=== PATIENT | male | born 1985 | race American Indian/Alaskan Native ===

== ENCOUNTER 2018-05-01 10:15 | Emergency (ER) | payer SELFPAY ==
[2018-05-01] MEDS ORDERED: DELTASONE PO ONE (10:36)
[2018-05-01] MEDS ORDERED: CATAPRES PO ONE (10:36)
[2018-05-01] MEDS ORDERED: TORADOL IM ONE (10:36)
[2018-05-01] MEDS ORDERED: FLEXERIL PO ONE (10:36)
--- NOTE | 2018-05-01 10:38 | Emergency Department Report ---
ED Back Pain/Injury HPI - General Chief Complaint: High BP Stated Complaint: LOWER BACK PAIN/HBP Time Seen by Provider: 05/01/18 10:33 Source: patient Limitations: No Limitations - History of Present Illness Initial Comments: Patient is a 32-year-old -[place]unis[place] male who presented to an urgent care today complaining of low back pain after picking something up at work. He took his blood pressure and found to be 200/112 so they sent him to the emergency room. Patient has no chest pain or shortness of breath or swelling of the extremities or any other complaint other than his low back pain. He states the pain started after he lifted something at work. He states that he used to take blood pressure medicines but has not in some time. He is on no home medications. Has no allergies. He has no major medical problems other than the blood pressure. Complaint: back injury - Related Data Previous Rx's Medication Instructions Recorded Last Taken Type Cyclobenzaprine [Flexeril] 10 mg PO TID PRN #10 tablet 05/01/18 Unknown Rx Naproxen [Naprosyn] 500 mg PO BID PRN #20 tablet 05/01/18 Unknown Rx RX: predniSONE [Deltasone] 20 mg PO DAILY #5 tablet 05/01/18 Unknown Rx amLODIPine [Norvasc] 5 mg PO DAILY #30 tab 05/01/18 Unknown Rx Allergies Allergy/AdvReac Type Severity Reaction Status Date / Time No Known Allergies Allergy Unverified 05/01/18 10:30 ED Review of Systems ROS: Stated complaint: LOWER BACK PAIN/HBP Other details as noted in HPI Comment: All other systems reviewed and negative Constitutional: denies: chills, fever Eyes: denies: eye pain ENT: denies: ear pain Respiratory: denies: cough, orthopnea, shortness of breath, SOB with exertion, SOB at rest Cardiovascular: denies: chest pain, palpitations Endocrine: denies: excessive sweating Gastrointestinal: denies: abdominal pain, nausea, vomiting Genitourinary: denies: urgency, dysuria, frequency, hematuria, discharge Musculoskeletal: as per HPI, back pain, other Skin: denies: rash, lesions Neurological: denies: headache, weakness (after lifting at work) Psychiatric: denies: anxiety, depression Hematological/Lymphatic: denies: easy bleeding ED Past Medical Hx - Past Medical History Medical history: hypertension Surgical history: no surgical history Psychiatric history: no pertinent history Family history: no significant family history - Social History Smoking Status: Never Smoker Alcohol use: rarely Drug use: none ED Back Pain Physical Exam - Exam General: Vital signs noted. No distress. Alert and acting appropriately. A/O X4 BERRY NO FOCAL NEURO DEF S1S2 NO EDEMA LUNGS CTA ABD SNT NO CVA TENDERNESS NO POINT TENDERNESS OVER SPINE L PARASPINAL MUSCLE SPASM NOTED AMBULATING WITHOUT DIFFICULTY NO INCONTINENCE OR SADDLE ANESTHESIA Back/Abdomen: Yes Straight Leg Raise Pain (right), No Abdominal Tenderness, No Perithoracic Tenderness, No Perilumbar Tenderness, No Sacroiliac Tenderness, No Flank Tenderness Neuro: Yes Normal Sensation, Yes Normal DTR's, Yes Normal Gait, No Motor Weakness ED Course Vital Signs 05/01/18 10:27 Temperature 98.6 F Pulse Rate 74 Respiratory 18 Rate Blood Pressure 192/123 O2 Sat by Pulse 98 Oximetry ED Medical Decision Making - Radiology Data Radiology results: report reviewed, image reviewed - Medical Decision Making XRAY NOTED MEDICATED FOR PAIN AND BP EDUCATED ON IMPORTANCE OF FOLLOWING UP FOR HIS BP STARTED ON NORVASC DAILY EDUCATED ON BP MANAGEMENT DC HOME WITH DC PLAN OF CARE. - Differential Diagnosis RO DISC HERNIATION Critical care attestation.: If time is entered above; I have spent that time in minutes in the direct care of this critically ill patient, excluding procedure time. ED Disposition Clinical Impression: Lumbar strain, Hypertension, Medical non-compliance Disposition: DC-01 TO HOME OR SELFCARE Is pt being admited?: No Does the pt Need Aspirin: No Condition: Stable Instructions: Muscle Strain (ED), Hypertension (ED) Additional Instructions: MEDS ORDERED TODAY FOLLOW UP PCP REFERRAL BELOW REST AND WARM COMPRESSES WILL HELP WITH BACK HYDRATE WELL WITH WATER YOU WILL NEED TO SEE THE PCP FOR YOUR ELEVATED BLOOD PRESSURE - REFERRAL BELOW IN THE MEAN TIME TAKE MED YOU WERE GIVEN TODAY AND FOLLOW A LOW SALT DIET; AVOID FRIED FOOD AND FAST FOOD EXERCISE DAILY Prescriptions: amLODIPine [Norvasc] 5 mg PO DAILY #30 tab Cyclobenzaprine [Flexeril] 10 mg PO TID PRN #10 tablet PRN Reason: Muscle Spasm Naproxen [Naprosyn] 500 mg PO BID PRN #20 tablet PRN Reason: Pain RX: predniSONE [Deltasone] 20 mg PO DAILY #5 tablet Referrals: LIGIA CLIFFORD MD [Primary Care Provider] - 3-5 Days [facility] [Outside] - 3-5 Days Time of Disposition: 11:30
--- NOTE | 2018-05-01 11:19 | XRay Report ---
LUMBAR SPINE RADIOGRAPHS: INDICATION: Pain after lifting. COMPARISON: None similar at this institution. FINDINGS: AP and lateral lumbar spine radiographs demonstrate preserved vertebral body stature, alignment and disc heights. Nonobstructive bowel gas pattern. Normal bilateral SI joints. Cardiomegaly not excluded at the imaged lung bases. CONCLUSION: No acute lumbar radiographic abnormality. Cardiomegaly not excluded. Please correlate. Thank you for the opportunity to participate in this patient's care.
[2018-05-01 11:25] VITALS: BP 173/109
== END 2018-05-01 11:44 | disposition home or self-care (01) ==
LOC: ED 10:15
DX: S39.012A Strain of muscle, fascia and tendon of lower back, initial encounter (principal); X50.1XXA Overexertion from prolonged static or awkward postures, initial encounter; Y93.89 Activity, other specified; Y92.89 Other specified places as the place of occurrence of the external cause; Y99.8 Other external cause status
CPT/HCPCS: 72100; 96372; 99283; J1885; J7512

== ENCOUNTER 2021-02-16 11:52 | Emergency (ER) | payer SELFPAY ==
[2021-02-16] MEDS ORDERED: FUROSEMIDE 40 MG/4 ML INJ IV ONE (12:34)
--- NOTE | 2021-02-16 12:38 | Emergency Department Report ---
HPI - General Chief Complaint: High BP Time Seen by Provider: 02/16/21 12:08 - HPI HPI: This is a 35-year-old -Cro[place] male presents to the emergency department, sent in by his daycare assistant Dr. Fuller [facility], for evaluation of uncontrolled and elevated blood pressure and suspicion for an exacerbation of CHF. The patient went into follow-up with Dr. Fuller secondary to some recent shortness of breath, as well as swelling in the legs and abdomen. Patient does have a history of CHF for which he is on carvedilol, Entresto, and Lasix. The patient admits that he is only sporadically compliant with the Entresto as he can only take it if he gets samples from his daycare assistant, otherwise he cannot afford it, and therefore he has not been taking it as prescribed. Patient was found to have a blood pressure of 220/180 in the office. He was given clonidine 0.2 mg, it was repeated and went down to 200/130, and the order was given to tra nsfer the patient to the emergency department. 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 ED Past Medical Hx - Past Medical History Previous Medical History?: Yes Hx Hypertension: Yes - Surgical History Past Surgical History?: No - Social History Smoking Status: Never Smoker - Medications Home Medications: Home Medications Medication Instructions Recorded Confirmed Last Taken Type Cyclobenzaprine [Flexeril] 10 mg PO TID PRN #10 tablet 05/01/18 Unknown Rx Naproxen [Naprosyn] 500 mg PO BID PRN #20 tablet 05/01/18 Unknown Rx amLODIPine [Norvasc] 5 mg PO DAILY #30 tab 05/01/18 Unknown Rx predniSONE [Deltasone] 20 mg PO DAILY #5 tablet 05/01/18 Unknown Rx NIFEdipine XL [Procardia Xl] 90 mg PO QDAY #30 tablet 02/16/21 Unknown Rx ED Review of Systems ROS: Stated complaint: ELEVATED BLOOD PRESSURE Other details as noted in HPI Comment: All other systems reviewed and negative Constitutional: denies: chills, fever Eyes: denies: eye pain, vision change ENT: denies: ear pain, throat pain Respiratory: orthopnea, shortness of breath. denies: cough Cardiovascular: edema. denies: chest pain Gastrointestinal: denies: abdominal pain, vomiting Genitourinary: denies: dysuria, discharge Musculoskeletal: denies: back pain, joint swelling Skin: denies: rash, lesions Neurological: denies: headache, weakness Physical Exam - Physical Exam Vital Signs: Vital Signs 02/16/21 02/16/21 11:55 12:32 Temperature 98.1 F Pulse Rate 90 Respiratory 16 Rate Blood Pressure 198/140 [Left] O2 Sat by Pulse 96 96 Oximetry Physical Exam: GENERAL: The patient is well-developed well-nourished. HENT: Normocephalic. Atraumatic. Patient has moist mucous membranes. EYES: Extraocular motions are intact. NECK: Supple. Trachea is midline. CHEST/LUNGS: Slightly coarse breath sounds. No tachypnea or accessory muscle use. There is no respiratory distress noted. HEART/CARDIOVASCULAR: Regular. There is no tachycardia. There is no murmur. ABDOMEN: Abdomen is soft, nontender. Patient has normal bowel sounds. There is no abdominal distention. SKIN: Skin is warm and dry. 1+ pitting edema to the bilateral lower extremities. NEURO: The patient is awake, alert, and oriented. The patient is cooperative. The patient has no focal neurologic deficits. Normal speech. MUSCULOSKELETAL: There is no tenderness or deformity. There is no limitation range of motion. ED Course Vital Signs 02/16/21 02/16/21 11:55 12:32 Temperature 98.1 F Pulse Rate 90 Respiratory 16 Rate Blood Pressure 198/140 [Left] O2 Sat by Pulse 96 96 Oximetry - Consultations Consultation #1: 02/16/21 15:[address] Martinez, daycare assistant on-call for [facility]. The patient had seen Dr. Fuller in the office but Dr. Martinez saw the patient walking around in the [place] [facility] office as well. He listened to the patient's ED course including lab and imaging results. He did not feel that the patient necessarily required admission to the hospital. He has recommended the patient be placed on nifedipine XL 90 mg, given an extra dose of IV Lasix in the emergency department, and the patient can follow-up outpatient in their office. ED Medical Decision Making - Lab Data Result diagrams: 02/16/21 12:39 02/16/21 12:39 Lab Results 02/16/21 02/16/21 02/16/21 Range/Units 12:39 12:39 12:39 WBC 6.5 (4.5-11.0) K/mm3 RBC 5.01 (3.65-5.03) M/mm3 Hgb 12.0 (11.8-15.2) gm/dl Hct 38.0 (35.5-45.6) % MCV 76 L (84-94) fl MCH 24 L (28-32) pg MCHC 32 (32-34) % RDW 16.1 H (13.2-15.2) % Plt Count 305 (140-440) K/mm3 Lymph % (Auto) 24.7 (13.4-35.0) % [place] % (Auto) 7.4 H (0.0-7.3) % Eos % (Auto) 1.8 (0.0-4.3) % Baso % (Auto) 0.8 (0.0-1.8) % Lymph # (Auto) 1.6 (1.2-5.4) K/mm3 Charlotte # (Auto) 0.5 (0.0-0.8) K/mm3 Eos # (Auto) 0.1 (0.0-0.4) K/mm3 Baso # (Auto) 0.0 (0.0-0.1) K/mm3 Seg Neutrophils % 65.3 (40.0-70.0) % Seg Neutrophils # 4.2 (1.8-7.7) K/mm3 PT 13.8 (12.2-14.9) Sec. INR 0.96 (0.87-1.13) APTT 29.3 (24.2-36.6) Sec. Sodium 138 (137-145) mmol/L Potassium 3.4 L (3.6-5.0) mmol/L Chloride 101.3 (98-107) mmol/L Carbon Dioxide 24 (22-30) mmol/L Anion Gap 16 mmol/L BUN 15 (9-20) mg/dL Creatinine 1.2 (0.8-1.3) mg/dL Estimated GFR > 60 ml/min BUN/Creatinine Ratio 13 % Glucose 110 H (75-100) mg/dL Calcium 8.9 (8.4-10.2) mg/dL Total Bilirubin 0.80 (0.1-1.2) mg/dL AST 26 (5-40) units/L ALT 34 (7-56) units/L Alkaline Phosphatase 67 (35-129) units/L Troponin T < 0.010 (0.00-0.029) ng/mL NT-Pro-B Natriuret Pep 6298 H (0-450) pg/mL Total Protein 7.1 (6.3-8.2) g/dL Albumin 4.0 (3.9-5) g/dL Albumin/Globulin Ratio 1.3 % - EKG Data -: EKG Interpreted by Me EKG shows normal: sinus rhythm, axis, intervals (Prolonged NJ interval), QRS c omplexes (Nonspecific IVCD), ST-T waves Rate: normal - EKG Data When compared to previous EKG there are: previous EKG unavailable Interpretation: other (Sinus rhythm at 62 bpm, normal axis, prolonged NJ interval, nonspecific IVCD. No ST elevation OR) - Radiology Data Radiology results: image reviewed interpreted by me: Chest x-ray shows some pulmonary vascular congestion. No obvious pleural effusions. No pneumothorax or pneumonia. No widened mediastinum. - Medical Decision Making This patient initially presented to the emergency department from [place] [facility] with a complaint of very elevated blood pressure and possibly a CHF exacerbation. Patient does complain of some swelling to the bilateral lower extremities and around the abdomen. He has some occasional shortness of breath but denies any significant orthopnea or respiratory distress. On examination heart and lungs are normal to auscultation and he does not appear in any respiratory or acute distress. EKG does not show any morphology consistent with ST elevation myocardial infarction. Chest x-ray may show some mild pulmonary vascular congestion but no overt fluid overload. No pneumonia or pneumothorax. No widened mediastinum. Patient's labs have been mostly unremarkable including CBC, metabolic panel but he does have an elevated proBNP of about 6000. The patient did present with a very elevated blood pressure. He was given a dose of Lasix for diuresis, IV analgesia and a dose of IV antihypertensive medication. His blood pressure has come down to a more reasonable level. The patient has diuresed a significant amount and is feeling improved. As per the consultation section, I spoke with one of the [place] [facility] daycare assistant who says that the patient can be discharged home if he is feeling up to it. I spoke to the patient and gave him the options of an observational admission for continued diuresis and medication reconciliation/change, or discharge home with a new antihypertensive medication and outpatient follow-up with [facility]. After discussing all of the lab and imaging results and the possibilities, the patient has decided, through shared decision-making, that he would like to be discharged home and started on the nifedipine. Critical Care Time: No Critical care attestation.: If time is entered above; I have spent that time in minutes in the direct care of this critically ill patient, excluding procedure time. ED Disposition Clinical Impression: Hypertension Qualifiers: Hypertension type: primary hypertension Qualified Code(s): I10 - Essential (primary) hypertension CHF (congestive heart failure) Qualifiers: Heart failure type: unspecified Heart failure chronicity: unspecified Qualified Code(s): I50.9 - Heart failure, unspecified Disposition: HOME / SELF CARE / HOMELESS Is pt being admited?: No Condition: Stable Instructions: Heart Failure, Self Care, Hypertension, Adult, Heart Failure Eating Plan, Hypertension (ED) Additional Instructions: Please follow-up with your daycare assistant in the next few days for medication reconciliation and changes. I am starting you on a blood pressure medication called nifedipine XL that is taken once per day. Try to stay away from foods that are high in salt and caffeinated products. Please try to avoid any excessive fluid intake. Return to the emergency department with any worsening of your symptoms, new or concerning symptoms not addressed during this current emergency department visit, or with any acute distress. Prescriptions: NIFEdipine XL [Procardia Xl] 90 mg PO QDAY #30 tablet Referrals: PRIMARY MD BETHANIE [Primary Care Provider] - 2-3 Days JC FULLER MD [Staff Physician] - 2-3 Days Time of Disposition: 15:58
[2021-02-16 12:51] LABS: Basophils % (Auto) 0.8 % (0.0-1.8); Eosinophils # (Auto) 0.1 K/mm3 (0.0-0.4); Eosinophils % (Auto) 1.8 % (0.0-4.3); Lymphocytes # (Auto) 1.6 K/mm3 (1.2-5.4); Lymphocytes % (Auto) 24.7 % (13.4-35.0); Mean Corpuscular HGB Conc 32 % (32-34); Mean Corpuscular Volume 76 fl (84-94); Monocytes # (Auto) 0.5 K/mm3 (0.0-0.8); Monocytes % (Auto) 7.4 % (0.0-7.3); Platelet Count 305 K/mm3 (140-440); Red Blood Count 5.01 M/mm3 (3.65-5.03); Red Cell Distribution Width 16.1 % (13.2-15.2)
[2021-02-16 13:09] LABS: INR 0.96 (0.87-1.13)
[2021-02-16 13:10] LABS: Partial Thromboplastin Time 29.3 Sec. (24.2-36.6)
--- NOTE | 2021-02-16 13:22 | XRay Report ---
CHEST 1 VIEW 02/16/2021 12:53 PM INDICATION / CLINICAL INFORMATION: SOB. COMPARISON: None available. FINDINGS: SUPPORT DEVICES: None. HEART / MEDIASTINUM: Heart is moderately enlarged with pulmonary venous hypertension. LUNGS / PLEURA: No significant pulmonary or pleural abnormality. No pneumothorax. ADDITIONAL FINDINGS: No significant additional findings. IMPRESSION: 1. Cardiomegaly and pulmonary venous hypertension but no acute pulmonary or pleural findings. Signer Name: Jerrod Cedeno MD Signed: 02/16/2021 1:18 PM Workstation Name: [id number]
[2021-02-16] MEDS ORDERED: MORPHINE 4 MG/1 ML INJ IV ONE (13:59)
[2021-02-16 14:35] LABS: Alanine Aminotransferase 34 units/L (7-56); BUN/Creatinine Ratio 13; Blood Urea Nitrogen 15 mg/dL (9-20); Calcium 8.9 mg/dL (8.4-10.2); Hemolysis Index 7
[2021-02-16] MEDS ORDERED: POTASSIUM CHLORIDE ER 20 MEQ TAB PO ONE (14:45)
[2021-02-16] MEDS ORDERED: FUROSEMIDE 20 MG/2 ML INJ IV ONE (15:18)
[2021-02-16 16:28] VITALS: BP 169/114
--- NOTE | 2021-02-17 09:14 | Electrocardiograph Report ---
[facility] Test Date: 2021-02-16 Test Time: 14:37:22 Pat Name: JASIEL IRAHETA Department: Room: Gender: M Hr Leader: CAILIN : 1985 Requested By: BOBBY HANKINS Order Number: [id number] Reading MD: Dajuan Nails Measurements Intervals Mchenry Rate: 62 P: 45 CO: 224 QRS: 38 QRSD: 124 T: 9 QT: 482 QTc: 489 Interpretive Statements Sinus rhythm Prolonged CO interval Left atrial enlargement Nonspecific intraventricular conduction delay No previous ECG available for comparison Electronically Signed On 02-17-2021 9:13:52 EDT by Dajuan Nails
== END 2021-02-16 16:30 | disposition home or self-care (01) ==
LOC: ED 11:52
DX: I10 Essential (primary) hypertension (principal); I50.9 Heart failure, unspecified
CPT/HCPCS: 36415; 71045; 80053; 83880; 84484; 85025; 85610; 85730; 93005; 96374; 96375; 96376; 99284; J1940; J2270

== ENCOUNTER 2021-05-25 10:58 | Emergency (ER) | payer SELFPAY ==
--- NOTE | 2021-05-25 13:05 | Event Note ---
ED Screening Note ED Screening Note: co abd pain and back pain he thinks he is constipated he has no reason to be constipated- no narcs/ meds cant like flat due to sob bp elevated on 3 bp meds- coreg/lasix/and 3rd he cant recall allergy per EMR to lisinopril known to [facility] This initial assessment/diagnostic orders/clinical plan/treatment(s) is/are subject to change based on patients health status, clinical progression and re- assessment by fellow clinical providers in the ED. Further treatment and workup at subsequent clinical providers discretion. Patient/guardian urged not to elope from the ED as their condition may be serious if not clinically assessed and managed. Initial orders include: ro htn urg/emerg; ao disease
--- NOTE | 2021-05-25 13:29 | XRay Report ---
XR chest routine 2V INDICATION / CLINICAL INFORMATION: Chest Pain. COMPARISON: 02/16/2021 FINDINGS: SUPPORT DEVICES: None. HEART /PULMONARY VASCULATURE: Cardiomegaly with pulmonary vasculature congestion LUNGS / PLEURA: Mild increased interstitial opacities likely reflect edema. There is no focal airspac e consolidation. No sizable pleural effusion. No pneumothorax. ADDITIONAL FINDINGS: No significant additional findings. IMPRESSION: Findings most consistent with CHF/volume overload with mild interstitial edema. Signer Name: Daniel Estrada MD Signed: 05/25/2021 1:24 PM Workstation Name: [id number]
[2021-05-25 14:45] LABS: Basophils # (Auto) 0.1 K/mm3 (0.0-0.1); Eosinophils # (Auto) 0.1 K/mm3 (0.0-0.4); Eosinophils % (Auto) 1.6 % (0.0-4.3); Monocytes # (Auto) 0.5 K/mm3 (0.0-0.8)
[2021-05-25 15:06] LABS: Basophils % (Auto) 0.5 % (0.0-1.8); Hematocrit 38.2 % (35.5-45.6); Hemoglobin 11.9 gm/dl (11.8-15.2); Lymphocytes # (Auto) 1.3 K/mm3 (1.2-5.4); Lymphocytes % (Auto) 22.4 % (13.4-35.0); Mean Corpuscular HGB Conc 31 % (32-34); Mean Corpuscular Volume 75 fl (84-94); Platelet Count 271 K/mm3 (140-440); Red Blood Count 5.07 M/mm3 (3.65-5.03); Red Cell Distribution Width 18.4 % (13.2-15.2)
[2021-05-25] MEDS ORDERED: ALUM-MAG HYDROXIDE-SIMETHICONE 200-200-20MG/5ML ORAL LIQD 30 ML PO ONE (15:47)
[2021-05-25] MEDS ORDERED: METOPROLOL TARTRATE 5 MG/5 ML INJ IV ONE (15:48)
[2021-05-25 16:04] LABS: Alanine Aminotransferase 23 units/L (7-56); BUN/Creatinine Ratio 14; Blood Urea Nitrogen 17 mg/dL (9-20); Calcium 8.8 mg/dL (8.4-10.2); Hemolysis Index 7
[2021-05-25] MEDS ORDERED: FUROSEMIDE 40 MG/4 ML INJ IV ONE (17:13)
--- NOTE | 2021-05-25 18:12 | Cat Scan Report ---
CT CHEST, ABDOMEN, AND PELVIS WITH CONTRAST INDICATION / CLINICAL INFORMATION: severe abd pain rad to back with htn on 3 bp agent. TECHNIQUE: Axial CT images were obtained through the chest, abdomen, and pelvis after 100 cc of Omnip aque [address] scans at this location are performed using CT dose reduction for ALARA b y means of automated exposure control. COMPARISON: None available. FINDINGS: HEART: The heart is enlarged. CORONARY ARTERY CALCIFICATION: None. THORACIC AORTA: No significant abnormality. MEDIASTINUM / KAYLA: There is a mildly enlarged right paratracheal node which measures 1.6 cm in the s hort axis. There small nodes in the right para-aortic and aortocaval location which are not abnormall y enlarged. These are nonspecific. PLEURA: No pleural effusion. No pneumothorax. LUNGS: There is mosaic attenuation within the lungs which is nonspecific. Differential diagnosis incl udes small airways disease, pulmonary edema, infectious etiologies. ADDITIONAL CHEST FINDINGS: None. LIVER: No significant abnormality. GALLBLADDER: No significant abnormality. BILE DUCTS: No significant abnormality. PANCREAS: No significant abnormality. SPLEEN: No significant abnormality. ADRENALS: No significant abnormality. RIGHT KIDNEY / URETER: No significant abnormality. LEFT KIDNEY / URETER: No significant abnormality. STOMACH and SMALL BOWEL: No significant abnormality. COLON: No significant abnormality. APPENDIX: No significant abnormality. PERITONEUM: No free fluid. No free air. No fluid collection. LYMPH NODES: No significant adenopathy. AORTA / ARTERIES: No significant abnormality. No dissection is seen. The aorta is normal in diameter. IVC / VEINS: No significant abnormality. URINARY BLADDER: No significant abnormality. REPRODUCTIVE ORGANS: No significant abnormality. ADDITIONAL FINDINGS: None. SKELETAL SYSTEM: No acute abnormality. IMPRESSION: 1. There is cardiomegaly. 2. There is mosaic attenuation the lungs. This is nonspecific and could indicate small airways diseas e, pulmonary edema, or infectious process. 3. The aorta is normal in diameter. No dissection is seen. 4. There is mild nonspecific mediastinal adenopathy. These are likely reactive nodes. Signer Name: Jesús Mccormack MD Signed: 05/25/2021 6:07 PM Workstation Name: [id number]
[2021-05-25] MEDS ORDERED: hydrALAZINE 20 MG/1 ML INJ IV ONE (19:14)
--- NOTE | 2021-05-25 20:33 | Emergency Department Report ---
ED Abdominal Pain HPI - General Chief Complaint: Abdominal Pain Stated Complaint: ABD PAIN,HARD BOWEL Time Seen by Provider: 05/25/21 15:45 Source: patient Mode of arrival: Ambulatory Limitations: No Limitations - History of Present Illness Initial Comments: feeling full/constipated, hypertensive, not able to lay down, abdominal pain MD Complaint: abdominal pain -: Gradual, week(s), month(s) Location: diffuse Radiation: LUQ, RUQ Migration to: no migration Severity: mild Severity scale (0 -10): 3 Quality: fullness Consistency: constant Improves With: eating Worsens With: nothing - Related Data Previous Rx's Medication Instructions Recorded Last Taken Type Cyclobenzaprine [Flexeril] 10 mg PO TID PRN #10 tablet 05/01/18 Unknown Rx Naproxen [Naprosyn] 500 mg PO BID PRN #20 tablet 05/01/18 Unknown Rx amLODIPine [Norvasc] 5 mg PO DAILY #30 tab 05/01/18 Unknown Rx predniSONE [Deltasone] 20 mg PO DAILY #5 tablet 05/01/18 Unknown Rx NIFEdipine XL [Procardia Xl] 90 mg PO QDAY #30 tablet 02/16/21 Unknown Rx Allergies Allergy/AdvReac Type Severity Reaction Status Date / Time lisinopril Allergy Hives Verified 02/16/21 12:07 ED Review of Systems ROS: Stated complaint: ABD PAIN,HARD BOWEL Other details as noted in HPI Constitutional: denies: chills, fever Eyes: denies: eye pain, eye discharge, vision change ENT: denies: ear pain, throat pain Respiratory: denies: cough, shortness of breath, wheezing Cardiovascular: denies: chest pain, palpitations Endocrine: no symptoms reported Gastrointestinal: denies: abdominal pain, nausea, diarrhea Genitourinary: denies: urgency, dysuria Musculoskeletal: denies: back pain, joint swelling, arthralgia Skin: denies: rash, lesions Neurological: denies: headache, weakness, paresthesias Psychiatric: denies: anxiety, depression Hematological/Lymphatic: denies: easy bleeding, easy bruising ED Past Medical Hx - Past Medical History Previous Medical History?: Yes Hx Hypertension: Yes Hx CVA: No Hx Heart Attack/AMI: No - Surgical History Past Surgical History?: No - Social History Smoking Status: Never Smoker - Medications Home Medications: Home Medications Medication Instructions Recorded Confirmed Last Taken Type Cyclobenzaprine [Flexeril] 10 mg PO TID PRN #10 tablet 05/01/18 Unknown Rx Naproxen [Naprosyn] 500 mg PO BID PRN #20 tablet 05/01/18 Unknown Rx amLODIPine [Norvasc] 5 mg PO DAILY #30 tab 05/01/18 Unknown Rx predniSONE [Deltasone] 20 mg PO DAILY #5 tablet 05/01/18 Unknown Rx NIFEdipine XL [Procardia Xl] 90 mg PO QDAY #30 tablet 02/16/21 Unknown Rx ED Physical Exam - General Limitations: No Limitations General appearance: alert, in no apparent distress - Head Head exam: Present: atraumatic, normocephalic - Eye Eye exam: Present: normal appearance - ENT ENT exam: Present: mucous membranes moist - Neck Neck exam: Present: normal inspection - Respiratory Respiratory exam: Present: normal lung sounds bilaterally, rales. Absent: respiratory distress - Cardiovascular Cardiovascular Exam: Present: regular rate, normal rhythm. Absent: systolic murmur, diastolic murmur, rubs, gallop - GI/Abdominal GI/Abdominal exam: Present: soft, normal bowel sounds - Rectal Rectal exam: Present: deferred - Extremities Exam Extremities exam: Present: normal inspection - Back Exam Back exam: Present: normal inspection - Neurological Exam Neurological exam: Present: alert, oriented X3 - Psychiatric Psychiatric exam: Present: normal affect, normal mood - Skin Skin exam: Present: warm, dry, intact, normal color. Absent: rash ED Course Vital Signs 05/25/21 05/25/21 05/25/21 12:55 13:01 15:48 Temperature 98.2 F Pulse Rate 81 Respiratory 18 16 Rate Blood Pressure 202/149 O2 Sat by Pulse 99 97 Oximetry 05/25/21 05/25/21 05/25/21 16:00 16:16 16:30 Temperature Pulse Rate 73 77 68 Respiratory 15 20 26 H Rate Blood Pressure 186/114 186/114 174/120 O2 Sat by Pulse 96 96 94 Oximetry 05/25/21 05/25/21 05/25/21 16:46 16:59 17:00 Temperature Pulse Rate 68 63 65 Respiratory 24 19 Rate Blood Pressure 174/120 178/133 178/133 O2 Sat by Pulse 94 95 Oximetry 05/25/21 05/25/21 05/25/21 17:16 17:38 17:46 Temperature Pulse Rate 64 82 72 Respiratory 21 18 20 Rate Blood Pressure 178/133 178/133 178/133 O2 Sat by Pulse 98 93 89 Oximetry 05/25/21 05/25/21 05/25/21 18:00 18:16 18:30 Temperature Pulse Rate 67 76 104 H Respiratory 16 11 L 39 H Rate Blood Pressure 177/125 177/125 177/125 O2 Sat by Pulse 93 96 93 Oximetry 05/25/21 05/25/21 05/25/21 18:46 19:00 20:05 Temperature Pulse Rate 67 Respiratory Rate Blood Pressure 176/119 194/130 199/138 O2 Sat by Pulse 97 90 Oximetry - Reevaluation(s) Reevaluation #1: 05/25/21 20:34 work up showed CHf exacerbation lasix given feels better ct abdomen and chest showed CHF BP controlled with hydralazine , lopressor [id number] no distress vss bfeore discharge will see his card OP ED Medical Decision Making - Lab Data Result diagrams: 05/25/21 13:50 05/25/21 13:50 Critical care attestation.: If time is entered above; I have spent that time in minutes in the direct care of this critically ill patient, excluding procedure time. ED Disposition Clinical Impression: CHF exacerbation, Uncontrolled hypertension Disposition: 01 HOME / SELF CARE / HOMELESS Is pt being admited?: No Does the pt Need Aspirin: No Condition: Stable Instructions: Heart Failure, Self Care, Heart Failure, Self Care, [id number], Hypertension, Adult, Hypertension (ED) Referrals: PRIMARY CARE, [Primary Care Provider] - 3-5 Days
[2021-05-25 22:27] VITALS: BP 161/96
== END 2021-05-25 21:30 | disposition home or self-care (01) ==
LOC: ED 10:58
DX: I50.9 Heart failure, unspecified (principal); I10 Essential (primary) hypertension; Z88.1 Allergy status to other antibiotic agents
CPT/HCPCS: 36415; 71046; 71260; 74177; 80053; 83690; 84484; 85025; 96374; 96375; 99284; J0360; J1940; J9280; Q9967

== ENCOUNTER 2021-06-25 15:17 | Inpatient (IN) | payer SELFPAY ==
[2021-06-25] MEDS ORDERED: FUROSEMIDE 40 MG/4 ML INJ IV ONE (17:35)
[2021-06-25 17:53] LABS: Basophils % (Auto) 0.6 % (0.0-1.8); Eosinophils # (Auto) 0.1 K/mm3 (0.0-0.4); Eosinophils % (Auto) 1.7 % (0.0-4.3); Hematocrit 37.3 % (35.5-45.6); Hemoglobin 11.3 gm/dl (11.8-15.2); Lymphocytes # (Auto) 1.4 K/mm3 (1.2-5.4); Lymphocytes % (Auto) 24.6 % (13.4-35.0); Mean Corpuscular HGB Conc 30 % (32-34); Mean Corpuscular Volume 75 fl (84-94); Monocytes # (Auto) 0.4 K/mm3 (0.0-0.8); Monocytes % (Auto) 7.5 % (0.0-7.3); Platelet Count 255 K/mm3 (140-440); Red Blood Count 4.98 M/mm3 (3.65-5.03); Red Cell Distribution Width 18.4 % (13.2-15.2)
[2021-06-25 18:10] LABS: Creatine Kinase MB 3.5 ng/mL (0.0-4.0)
[2021-06-25 18:11] LABS: Alanine Aminotransferase 63 units/L (7-56); Albumin 3.6 g/dL (3.9-5); BUN/Creatinine Ratio 15; Blood Urea Nitrogen 17 mg/dL (9-20); Calcium 8.9 mg/dL (8.4-10.2); Hemolysis Index 66
--- NOTE | 2021-06-25 18:26 | Emergency Department Report ---
HPI - General Chief Complaint: Chest Pain Time Seen by Provider: 06/25/21 17:26 - HPI HPI: MSE 4 The patient is a 35-year-old male present with a chief complaint of congestive heart failure. Patient states for the past week he has noticed worsening rafael ateral lower extremity edema and "feeling full." Patient states she has had shortness of breath for same on time in addition to orthopnea. Patient is an occasional cough is productive of brown sputum but denies history of fever. Patient states he has not been vaccinated against COVID. Patient states he has been compliant with his Lasix 40 mg daily but has not helped. ED Past Medical Hx - Past Medical History Hx Hypertension: Yes Hx Congestive Heart Failure: Yes - Surgical History Past Surgical History?: No - Family History Family history: no significant - Social History Smoking Status: Never Smoker Substance Use Type: None (Denies illicit drug use) - Medications Home Medications: Home Medications Medication Instructions Recorded Confirmed Last Taken Type Cyclobenzaprine [Flexeril] 10 mg PO TID PRN #10 tablet 05/01/18 Unknown Rx Naproxen [Naprosyn] 500 mg PO BID PRN #20 tablet 05/01/18 Unknown Rx amLODIPine [Norvasc] 5 mg PO DAILY #30 tab 05/01/18 Unknown Rx predniSONE [Deltasone] 20 mg PO DAILY #5 tablet 05/01/18 Unknown Rx NIFEdipine XL [Procardia Xl] 90 mg PO QDAY #30 tablet 02/16/21 Unknown Rx ED Review of Systems ROS: Stated complaint: SWELLING/LEG/FOOT/STOMACH Other details as noted in HPI Constitutional: denies: fever Eyes: denies: eye pain ENT: denies: throat pain Respiratory: cough, orthopnea, shortness of breath, SOB with exertion Cardiovascular: dyspnea on exertion. denies: chest pain Endocrine: no symptoms reported Gastrointestinal: denies: abdominal pain Genitourinary: denies: dysuria Musculoskeletal: denies: back pain Neurological: denies: headache Physical Exam - Physical Exam Vital Signs: Vital Signs 06/25/21 16:51 Temperature 98.3 F Pulse Rate 95 H Respiratory 18 Rate Blood Pressure 180/119 O2 Sat by Pulse 95 Oximetry Physical Exam: GENERAL: The patient is well-developed well-nourished male sitting in chair not appearing to be in acute distress. [] HEENT: Normocephalic. Atraumatic. Extraocular motions are intact. Patient has moist mucous membranes. NECK: Supple. Trachea midline CHEST/LUNGS: Diminished, slightly increased work of breathing HEART/CARDIOVASCULAR: Regular. There is no tachycardia. There is no gallop rub or murmur. ABDOMEN: Abdomen is soft, nontender. Patient has normal bowel sounds. There is no abdominal distention. SKIN: There is no rash. There is 2+ bilateral lower extremity pitting edema. There is no diaphoresis. NEURO: The patient is awake, alert, and oriented. The patient is cooperative. The patient has no focal neurologic deficits. The patient has normal speech. GCS 15 MUSCULOSKELETAL: There is no evidence of acute injury. ED Course Vital Signs 06/25/21 16:51 Temperature 98.3 F Pulse Rate 95 H Respiratory 18 Rate Blood Pressure 180/119 O2 Sat by Pulse 95 Oximetry ED Medical Decision Making - Lab Data Result diagrams: 06/25/21 17:38 06/25/21 17:38 Laboratory Tests 06/25/21 06/25/21 06/25/21 17:38 17:38 17:38 WBC 5.6 RBC 4.98 Hgb 11.3 L Hct 37.3 MCV 75 L MCH 23 L MCHC 30 L RDW 18.4 H Plt Count 255 Lymph % (Auto) 24.6 [place] % (Auto) 7.5 H Eos % (Auto) 1.7 Baso % (Auto) 0.6 Lymph # (Auto) 1.4 [place] # (Auto) 0.4 Eos # (Auto) 0.1 Baso # (Auto) 0.0 Seg Neutrophils % 65.6 Seg Neutrophils # 3.6 Sodium 139 Potassium 4.0 Chloride 103.6 Carbon Dioxide 25 Anion Gap 14 BUN 17 Creatinine 1.1 Estimated GFR > 60 BUN/Creatinine Ratio 15 Glucose 98 Calcium 8.9 Total Bilirubin 0.90 AST 52 H ALT 63 H Alkaline Phosphatase 76 Total Creatine Kinase 189 H CK-MB (CK-2) 3.5 CK-MB (CK-2) Rel Index 1.8 Troponin T < 0.010 NT-Pro-B Natriuret Pep 5319 H Total Protein 5.8 L Albumin 3.6 L Albumin/Globulin Ratio 1.6 - EKG Data -: EKG Interpreted by De EKG shows normal: sinus rhythm Rate: normal (74 beats per) - EKG Data When compared to previous EKG there are: previous EKG unavailable Interpretation: other (QT prolongation QTC 513) - Radiology Data Radiology results: report reviewed (Chest x-ray), image reviewed (Chest x-ray) interpreted by me: Chest x-ray-CHF/cephalization, no definite focal infiltrate. No pneumothorax [facility] [address] [place] [address] XRay Report Signed Patient: JASIEL IRAHETA MR#: [id number] : 1985 Acct:[id number] Age/Sex: 35 / M ADM Date: 06/25/21 Loc: ED Attending Dr: Ordering Physician: DELGADO HUFF MD Date of Service: 06/25/21 Procedure(s): XR chest 1V ap Accession Number(s): [id number] cc: DELGADO HUFF MD Fluoro Time In Minutes: CHEST 1 VIEW INDICATION / CLINICAL INFORMATION: Shortness of breath. COMPARISON: 05/25/2021 FINDINGS: SUPPORT DEVICES: None. HEART / MEDIASTINUM: Stable. LUNGS / PLEURA: Mild cephalization of the pulmonary vasculature. No focal consolidation or significant effusion. No pneumothorax. ADDITIONAL FINDINGS: No significant additional findings. IMPRESSION: 1. Mild pulmonary vascular congestion. No focal consolidation or significant effusion. Signer Name: Carols Lezama MD Signed: 06/25/2021 6:27 PM Workstation Name: [id number] Transcribed By: SB Dictated By: CARLOS LEZAMA MD Electronically Authenticated By: CARLOS LEZAMA MD Signed Date/Time: 06/25/21 1827 - Differential Diagnosis CHF exacerbation, pneumonia, bronchitis Critical care attestation.: If time is entered above; I have spent that time in minutes in the direct care of this critically ill patient, excluding procedure time. ED Disposition Clinical Impression: CHF exacerbation Disposition: ADMITTED INPATIENT Is pt being admited?: Yes Does the pt Need Aspirin: Yes Condition: Fair Time of Disposition: 18:46 (Hospitalist notified (Dr. Mata))
--- NOTE | 2021-06-25 18:31 | XRay Report ---
CHEST 1 VIEW INDICATION / CLINICAL INFORMATION: Shortness of breath. COMPARISON: 05/25/2021 FINDINGS: SUPPORT DEVICES: None. HEART / MEDIASTINUM: Stable. LUNGS / PLEURA: Mild cephalization of the pulmonary vasculature. No focal consolidation or significan t effusion. No pneumothorax. ADDITIONAL FINDINGS: No significant additional findings. IMPRESSION: 1. Mild pulmonary vascular congestion. No focal consolidation or significant effusion. Signer Name: Carlos Lezama MD Signed: 06/25/2021 6:27 PM Workstation Name: [id number]
[2021-06-25] MEDS ORDERED: cloNIDine 0.2 MG TAB PO ONE (20:13)
[2021-06-25] MEDS ORDERED: ACETAMINOPHEN 325 MG TAB PO PRN ×2 (20:32→20:41)
[2021-06-25] MEDS ORDERED: ONDANSETRON 4 MG/2 ML INJ IV PRN ×2 (20:32→20:41)
[2021-06-25] MEDS ORDERED: oxyCODONE /ACETAMINOPHEN 5-325MG TAB PO PRN (20:32)
--- NOTE | 2021-06-25 20:32 | History and Physical Report ---
History of Present Illness Date of examination: 06/25/21 Date of admission: 06/25/2021 Chief complaint: Increasing shortness of breath for 1 week History of present illness: 35-year-old -Citizen Of [place] male with history of hypertension and congestive heart failure who follows with [facility]-Dr. Fuller comes in for increasing shortness of breath for the last 1 week. Patient has doubled up on his Lasix to twice a day. In spite of that patient is getting congested in his lungs and both the lower extremities. Patient does not follow fluid restriction limits a nd has no idea about it. Patient is orthopneic. No PND at times. Shortness of breath on minimal exertion and has class IV NYHA symptoms. No chest pain. - Past Medical History --Hypertension: Yes --Congestive Heart Failure: Yes - Surgical History --Past Surgical History?: No - Family History --Family history: no significant - Social History --Smoking Status: Never Smoker --Substance Use Type: None (Denies illicit drug use) - Medications --Home Medications: Home Medications Medication Instructions Recorded Confirmed Last Taken Type Cyclobenzaprine [Flexeril] 10 mg PO TID PRN #10 tablet 05/01/18 Unknown Rx Naproxen [Naprosyn] 500 mg PO BID PRN #20 tablet 05/01/18 Unknown Rx amLODIPine [Norvasc] 5 mg PO DAILY #30 tab 05/01/18 Unknown Rx predniSONE [Deltasone] 20 mg PO DAILY #5 tablet 05/01/18 Unknown Rx NIFEdipine XL [Procardia Xl] 90 mg PO QDAY #30 tablet 02/16/21 Unknown Rx Review of Systems ROS: Stated complaint: SWELLING/LEG/FOOT/STOMACH Other details as noted in HPI Constitutional: denies: fever Eyes: denies: eye pain ENT: denies: throat pain Respiratory: cough, orthopnea, shortness of breath, SOB with exertion Cardiovascular: dyspnea on exertion. denies: chest pain Endocrine: no symptoms reported Gastrointestinal: denies: abdominal pain Genitourinary: denies: dysuria Musculoskeletal: denies: back pain Neurological: denies: headache Medications and Allergies Allergies Allergy/AdvReac Type Severity Reaction Status Date / Time lisinopril Allergy Hives Verified 02/16/21 12:07 Home Medications Medication Instructions Recorded Confirmed Last Taken Type Cyclobenzaprine [Flexeril] 10 mg PO TID PRN #10 tablet 05/01/18 06/25/21 Unknown Rx Naproxen [Naprosyn] 500 mg PO BID PRN #20 tablet 05/01/18 06/25/21 Unknown Rx amLODIPine [Norvasc] 5 mg PO DAILY #30 tab 05/01/18 06/25/21 Unknown Rx predniSONE [Deltasone] 20 mg PO DAILY #5 tablet 05/01/18 06/25/21 Unknown Rx NIFEdipine XL [Procardia Xl] 90 mg PO QDAY #30 tablet 02/16/21 06/25/21 Unknown Rx Exam - Constitutional Vitals: Temp Pulse Resp BP Pulse Ox 98.4 F 79 15 180/125 98 06/25/21 19:58 06/25/21 20:00 06/25/21 20:00 06/25/21 19:58 06/25/21 20:00 General appearance: Present: mild distress, well-nourished - EENT Eyes: Present: PERRL ENT: hearing intact, clear oral mucosa - Neck Neck: Present: supple, normal ROM - Respiratory Respiratory effort: normal Respiratory: bilateral: CTA - Cardiovascular Heart rate: 78 Rhythm: regular Heart Sounds: Present: S1 & S2. Absent: rub, click - Extremities Extremities: no ischemia, pulses intact, pulses symmetrical, No edema Peripheral Pulses: within normal limits - Abdominal General gastrointestinal: Present: soft, non-tender, non-distended, normal bowel sounds Male genitourinary: Present: normal - Rectal Rectal Exam: deferred - Integumentary Integumentary: Present: clear, warm, dry - Musculoskeletal Musculoskeletal: gait normal, strength equal bilaterally - Psychiatric Psychiatric: appropriate mood/affect, intact judgment & insight - Neurologic Neurologic: CNII-XII intact, moves all extremities - Allied Health Allied health notes reviewed: nursing, case management HEART Score - HEART Score History: Moderately suspicious Age: < 45 Troponin: Troponin T < 0.010 ng/mL (0.00-0.029) 06/25/21 17:38 Troponin: < normal limit - Critical Actions Critical Actions: 4-6 pts:12-16.6% risk of adverse cardiac event. Should be admitted Results - Labs CBC & Chem 7: 06/26/21 04:38 06/26/21 04:38 Labs: Laboratory Last Values WBC 5.6 K/mm3 (4.5-11.0) 06/25/21 17:38 RBC 4.98 M/mm3 (3.65-5.03) 06/25/21 17:38 Hgb 11.3 gm/dl (11.8-15.2) L 06/25/21 17:38 Hct 37.3 % (35.5-45.6) 06/25/21 17:38 MCV 75 fl (84-94) L 06/25/21 17:38 MCH 23 pg (28-32) L 06/25/21 17:38 MCHC 30 % (32-34) L 06/25/21 17:38 RDW 18.4 % (13.2-15.2) H 06/25/21 17:38 Plt Count 255 K/mm3 (140-440) 06/25/21 17:38 Lymph % (Auto) 24.6 % (13.4-35.0) 06/25/21 17:38 [place] % (Auto) 7.5 % (0.0-7.3) H 06/25/21 17:38 Eos % (Auto) 1.7 % (0.0-4.3) 06/25/21 17:38 Baso % (Auto) 0.6 % (0.0-1.8) 06/25/21 17:38 Lymph # (Auto) 1.4 K/mm3 (1.2-5.4) 06/25/21 17:38 [place] # (Auto) 0.4 K/mm3 (0.0-0.8) 06/25/21 17:38 Eos # (Auto) 0.1 K/mm3 (0.0-0.4) 06/25/21 17:38 Baso # (Auto) 0.0 K/mm3 (0.0-0.1) 06/25/21 17:38 Seg Neutrophils % 65.6 % (40.0-70.0) 06/25/21 17: Seg Neutrophils # 3.6 K/mm3 (1.8-7.7) 06/25/21 17:38 Sodium 139 mmol/L (137-145) 06/25/21 17:38 Potassium 4.0 mmol/L (3.6-5.0) 06/25/21 17:38 Chloride 103.6 mmol/L (98-107) 06/25/21 17:38 Carbon Dioxide 25 mmol/L (22-30) 06/25/21 17:38 Anion Gap 14 mmol/L 06/25/21 17:38 BUN 17 mg/dL (9-20) 06/25/21 17:38 Creatinine 1.1 mg/dL (0.8-1.3) 06/25/21 17:38 Estimated GFR > 60 ml/min 06/25/21 17:38 BUN/Creatinine Ratio 15 % 06/25/21 17:38 Glucose 98 mg/dL (75-100) 06/25/21 17:38 Calcium 8.9 mg/dL (8.4-10.2) 06/25/21 17:38 Total Bilirubin 0.90 mg/dL (0.1-1.2) 06/25/21 17:38 AST 52 units/L (5-40) H 06/25/21 17:38 ALT 63 units/L (7-56) H 06/25/21 17:38 Alkaline Phosphatase 76 units/L (35-129) 06/25/21 17:38 Total Creatine Kinase 189 units/L (55-170) H 06/25/21 17:38 CK-MB (CK-2) 3.5 ng/mL (0.0-4.0) 06/25/21 17:38 CK-MB (CK-2) Rel Index 1.8 (0-4) 06/25/21 17:38 Troponin T < 0.010 ng/mL (0.00-0.029) 06/25/21 17:38 NT-Pro-B Natriuret Pep 5319 pg/mL (0-450) H 06/25/21 17:38 Total Protein 5.8 g/dL (6.3-8.2) L 06/25/21 17:38 Albumin 3.6 g/dL (3.9-5) L 06/25/21 17:38 Albumin/Globulin Ratio 1.6 % 06/25/21 17:38 Short CBC 06/25/21 06/26/21 Range/Units 17:38 04:38 WBC 5.6 6.0 (4.5-11.0) K/mm3 Hgb 11.3 L 10.8 L (11.8-15.2) gm/dl Hct 37.3 33.2 L (35.5-45.6) % Plt Count 255 284 (140-440) K/mm3 BMP 06/25/21 06/26/21 17:38 04:38 Sodium 139 143 Potassium 4.0 3.3 L Chloride 103.6 104.4 Carbon Dioxide 25 27 BUN 17 16 Creatinine 1.1 1.2 Glucose 98 99 Calcium 8.9 8.7 Cardiac Enzymes 06/25/21 Range/Units 17:38 Total Creatine Kinase 189 H (55-170) units/L CK-MB (CK-2) 3.5 (0.0-4.0) ng/mL Troponin T < 0.010 (0.00-0.029) ng/mL Liver Function 06/25/21 06/26/21 Range/Units 17:38 04:38 Total Bilirubin 0.90 0.80 (0.1-1.2) mg/dL AST 52 H 36 (5-40) units/L ALT 63 H 55 (7-56) units/L Alkaline Phosphatase 76 72 (35-129) units/L Albumin 3.6 L 3.3 L (3.9-5) g/dL - Imaging and Cardiology EKG: report reviewed (Prolonged MT interval, sinus rhythm heart rate of 74 1 minute, left atrial enlargement, IVCD) Chest x-ray: report reviewed (Pulmonary vascular congestion) Assessment and Plan Advance Directives: Yes (Full code) VTE prophylaxis?: Chemical Plan of care discussed with patient/family: Yes - Patient Problems (1) Acute exacerbation of CHF (congestive heart failure) Current Visit: Yes Status: Acute Qualifiers: Heart failure type: combined systolic and diastolic Qualified Code(s): I50.43 - Acute on chronic combined systolic (congestive) and diastolic (congestive) heart failure Plan to address problem: Patient initiated on IV Lasix 40 mg twice a day Patient counseled about fluid restriction His main problem is taking excessive fluids Open mouth breather and feels thirsty because of the dryness of the tongue No echocardiogram done recently. Last few visits were reviewed Patient says he may have an echocardiogram done at [facility]. (2) Hypertension Current Visit: Yes Status: Chronic Qualifiers: Hypertension type: primary hypertension Qualified Code(s): I10 - Essential (primary) hypertension Plan to address problem: Patient to be continued on Coreg amlodipine and add losartan once a day (3) Microcytic anemia Current Visit: Yes Status: Chronic Plan to address problem: Iron levels and B12 folic acid requested (4) Malnutrition Current Visit: Yes Status: Chronic Plan to address problem: Albumin of 3.6 Dietary supplements initiated (5) DVT prophylaxis Current Visit: Yes Status: Acute Plan to address problem: Anticoagulation and GI prophylaxis (6) Advance care planning Current Visit: Yes Status: Acute Plan to address problem: Disease education collected, care plan discussed, diagnosis discussed, prognosis discussed. Patient is full code. Patient acknowledges understanding and agreement with care plan. +30 minutes.
[2021-06-26] MEDS ORDERED: hydrALAZINE 20 MG/1 ML INJ IV PRN (03:52)
[2021-06-26 05:49] LABS: Basophils # (Auto) 0.1 K/mm3 (0.0-0.1); Basophils % (Auto) 1.4 % (0.0-1.8); Eosinophils # (Auto) 0.1 K/mm3 (0.0-0.4); Eosinophils % (Auto) 2.2 % (0.0-4.3); Hematocrit 33.2 % (35.5-45.6); Hemoglobin 10.8 gm/dl (11.8-15.2); Lymphocytes # (Auto) 1.9 K/mm3 (1.2-5.4); Lymphocytes % (Auto) 31.8 % (13.4-35.0); Mean Corpuscular HGB Conc 33 % (32-34); Mean Corpuscular Volume 74 fl (84-94); Monocytes # (Auto) 0.6 K/mm3 (0.0-0.8); Monocytes % (Auto) 9.5 % (0.0-7.3); Platelet Count 284 K/mm3 (140-440); Red Blood Count 4.48 M/mm3 (3.65-5.03); Red Cell Distribution Width 18.7 % (13.2-15.2)
[2021-06-26 06:03] LABS: Alanine Aminotransferase 55 units/L (7-56); Albumin 3.3 g/dL (3.9-5); BUN/Creatinine Ratio 13; Blood Urea Nitrogen 16 mg/dL (9-20); Calcium 8.7 mg/dL (8.4-10.2); Hemolysis Index 9
[2021-06-26] MEDS: FUROSEMIDE 40 MG/4 ML INJ IV SCH ×2 (06:20→07:33)
[2021-06-26] MEDS: FAMOTIDINE 20 MG TAB PO SCH ×2 (07:33→09:14)
[2021-06-26] MEDS: HEPARIN 5,000 UNIT/1 ML VIAL SUB-Q SCH ×2 (07:33→09:14)
[2021-06-26] MEDS: POTASSIUM CHLORIDE ER 20 MEQ TAB PO SCH ×2 (07:33→09:14)
[2021-06-26] MEDS ORDERED: LOSARTAN 50 MG TAB PO SCH (11:33)
[2021-06-26] MEDS ORDERED: carvediloL 12.5 MG TAB PO SCH (12:00)
[2021-06-26] MEDS ORDERED: VALSARTAN 160MG TAB PO SCH (12:00)
[2021-06-26 12:10] VITALS: BP 160/112
[2021-06-26 13:05] LABS: % Iron Saturation 9.94 %
--- NOTE | 2021-06-26 15:51 | Discharge Summary ---
Providers - Providers Date of Admission: 06/25/21 20:32 Date of discharge: 06/26/21 Attending physician: ELIO Martinez Primary care physician: ALTAF FRASER Hospitalization Condition: Fair Hospital course: 06/26/21 35-year-old -[place] male with history of hypertension and congestive heart failure who follows with [facility]-Dr. Heck comes in for increasing shortness of breath for the last 1 week. Patient has doubled up on his Lasix to twice a day. In spite of that patient is getting congested in his lungs and both the lower extremities. Patient does not follow fluid restriction limits and has no idea about it. Patient is orthopneic. No PND at times. Shortness of breath on minimal exertion and has class IV NYHA symptoms. No chest pain. 06/26/21 Feels much better and wants to go home. Couselled about fluid intake Assessment and Plan Advance Directives: Yes (Full code) VTE prophylaxis?: Chemical Plan of care discussed with patient/family: Yes - Patient Problems (1) Acute exacerbation of CHF (congestive heart failure) Current Visit: Yes Status: Acute Qualifiers: Heart failure type: combined systolic and diastolic Qualified Code(s): I50.43 - Acute on chronic combined systolic (congestive) and diastolic patient is much better Echocardiogram is pending Patient wants to go home at any cost. Patient feels lot better (2) Hypertension Current Visit: Yes Status: Chronic Qualifiers: Hypertension type: primary hypertension Qualified Code(s): I10 - Essential (primary) hypertension Plan to address problem: Patient to be continued on Coreg amlodipine and add losartan once a day (3) Microcytic anemia Current Visit: Yes Status: Chronic Plan to address problem: Iron levels and B12 folic acid requested (4) Malnutrition Current Visit: Yes Status: Chronic Plan to address problem: Albumin of 3.6 Dietary supplements initiated (5) DVT prophylaxis Current Visit: Yes Status: Acute Plan to address problem: Anticoagulation and GI prophylaxis (6) Advance care planning Current Visit: Yes Status: Acute Plan to address problem: Disease education collected, care plan discussed, diagnosis discussed, prognosis discussed. Patient is full code. Patient acknowledges understanding and agreement with care plan. +30 minutes. + Disposition: 01 HOME / SELF CARE / HOMELESS Final Discharge Diagnosis (Prints w/discharge instructions): Acute CHF exacerbation. Hypertension. Microcytic anemia. Malnutrition Time spent for discharge: 35 minutes - Discharge Diagnoses (1) Acute exacerbation of CHF (congestive heart failure) Status: Acute Qualifiers: Heart failure type: combined systolic and diastolic Qualified Code(s): I50.43 - Acute on chronic combined systolic (congestive) and diastolic (congestive) heart failure (2) Hypertension Status: Chronic Qualifiers: Hypertension type: primary hypertension Qualified Code(s): I10 - Essential (primary) hypertension (3) Microcytic anemia Status: Chronic (4) Malnutrition Status: Chronic (5) DVT prophylaxis Status: Acute (6) Advance care planning Status: Acute Core Measure Documentation - Palliative Care Palliative Care/ Comfort Measures: Not Applicable - Core Measures Any of the following diagnoses?: none Exam - Constitutional Vitals: Temp Pulse Resp BP Pulse Ox 98.3 F 78 20 160/112 97 06/26/21 11:24 06/26/21 11:24 06/26/21 11:24 06/26/21 11:24 06/26/21 11:24 General appearance: Present: no acute distress, well-nourished - EENT Eyes: Present: PERRL ENT: hearing intact, clear oral mucosa - Neck Neck: Present: supple, normal ROM - Respiratory Respiratory effort: normal Respiratory: bilateral: CTA - Cardiovascular Heart rate: 78 Rhythm: regular Heart Sounds: Present: S1 & S2. Absent: rub, click - Extremities Extremities: pulses symmetrical, No edema Peripheral Pulses: within normal limits - Abdominal General gastrointestinal: Present: soft, non-tender, non-distended, normal bowel sounds Male genitourinary: Present: normal - Integumentary Integumentary: Present: clear, warm, dry - Musculoskeletal Musculoskeletal: gait normal, strength equal bilaterally - Psychiatric Psychiatric: appropriate mood/affect, intact judgment & insight - Neurologic Neurologic: CNII-XII intact, moves all extremities Plan Diet: low fat, low cholesterol, low salt Follow up with: ALTAF FRASER MD [Primary Care Provider] - 7 Days JC HECK MD [Staff Physician] - 7 Days Prescriptions: carvediloL [Coreg] 25 mg PO BID #60 tablet Valsartan [Diovan] 320 mg PO QDAY #30 tablet Potassium Chloride [K-Dur] 20 meq PO Q12HR #60 tablet Furosemide [Lasix] 40 mg PO Q12H #60
[2021-06-26] MEDS ORDERED: POTASSIUM CHLORIDE ER 20 MEQ TAB PO ONE (16:00)
--- NOTE | 2021-06-27 10:52 | Electrocardiograph Report ---
[facility] Test Date: 2021-06-25 Test Time: 16:54:36 Pat Name: JASIEL IRAHETA Department: Room: A454 1 Gender: M Foster Care Worker: CHERISE : 1985 Requested By: ELIO HARRIS Order Number: [id number] Reading MD: Blair Escamilla Measurements Intervals [place] Rate: 74 P: 44 CA: 223 QRS: -11 QRSD: 116 T: QT: 462 QTc: 513 Interpretive Statements Sinus rhythm Prolonged CA interval Left atrial enlargement Nonspecific intraventricular conduction delay Prolonged QT interval Compared to ECG 02/16/2021 14:37:22 Prolonged QT interval now present Electronically Signed On 06-27-2021 10:51:49 EDT by Blair Escamilla
== END 2021-06-26 16:45 | disposition home or self-care (01) | DRG 291 ==
LOC: ED 15:17 → 4A 20:32
PROVIDERS: ADMIT Internal Medicine; ATTEND Internal Medicine
DX: I11.0 Hypertensive heart disease with heart failure (principal); I50.43 Acute on chronic combined systolic (congestive) and diastolic (congestive) heart failure; E46 Unspecified protein-calorie malnutrition; Z68.41 Body mass index [BMI] 40.0-44.9, adult; D64.9 Anemia, unspecified; Z88.8 Allergy status to other drugs, medicaments and biological substances
CPT/HCPCS: 36415; 71045; 80053; 82550; 82553; 82607; 83550; 83880; 84484; 85025; 93005; G0378; J0360; J1644; J1940

== ENCOUNTER 2021-09-04 17:25 | Emergency (ER) | payer SELFPAY ==
[2021-09-04] MEDS ORDERED: ASPIRIN 325 MG TAB PO ONE (20:00)
--- NOTE | 2021-09-04 20:26 | XRay Report ---
CHEST 2 VIEWS INDICATION / CLINICAL INFORMATION: CHEST PAIN. COMPARISON: 06/25/21. FINDINGS: SUPPORT DEVICES: None. HEART / MEDIASTINUM: Mild to moderate cardiomegaly is stable. There is prominence of the central pulm onary vessels. The aorta is normal in caliber. LUNGS / PLEURA: Interstitial lung markings are mildly increased predominantly in the perihilar region s, similar to the prior study. No focal consolidation or effusion. No pneumothorax. ADDITIONAL FINDINGS: No significant additional findings. IMPRESSION: Cardiomegaly. Mild chronic perihilar interstitial lung disease may be related to chronic or recurrent CHF. Chronic interstitial lung disease could also have this appearance. Signer Name: Dakota Watson MD Signed: 09/04/2021 8:21 PM Workstation Name: [id number]
[2021-09-04 20:34] LABS: Basophils # (Auto) 0.1 K/mm3 (0.0-0.1); Eosinophils # (Auto) 0.1 K/mm3 (0.0-0.4); Eosinophils % (Auto) 1.4 % (0.0-4.3); Hematocrit 37.4 % (35.5-45.6); Hemoglobin 11.4 gm/dl (11.8-15.2); Lymphocytes # (Auto) 1.7 K/mm3 (1.2-5.4); Lymphocytes % (Auto) 27.2 % (13.4-35.0); Mean Corpuscular HGB Conc 31 % (32-34); Mean Corpuscular Volume 72 fl (84-94); Monocytes # (Auto) 0.6 K/mm3 (0.0-0.8); Monocytes % (Auto) 8.7 % (0.0-7.3); Platelet Count 305 K/mm3 (140-440); Red Blood Count 5.16 M/mm3 (3.65-5.03); Red Cell Distribution Width 21.1 % (13.2-15.2)
[2021-09-04 20:55] LABS: Alanine Aminotransferase 45 units/L (7-56); Albumin 3.7 g/dL (3.9-5); BUN/Creatinine Ratio 12; Blood Urea Nitrogen 16 mg/dL (9-20); Calcium 8.7 mg/dL (8.4-10.2); Hemolysis Index 5
[2021-09-05] MEDS ORDERED: TORSEMIDE 10 MG TAB PO STA (01:41)
--- NOTE | 2021-09-05 02:13 | Emergency Department Report ---
ED General Adult HPI - General Chief complaint: Chest Pain Stated complaint: DIFFICULTY SWALLOWING/CHEST DISCOMFORT Time Seen by Provider: 09/05/21 01:19 Source: patient Mode of arrival: Ambulatory Limitations: No Limitations - History of Present Illness Initial comments: 35-year-old male has a history of hypertension and CHF presents emerged department complaining of running out of his water pill and seeks a medication refill. He denies any chest pain or shortness of breath. No fever, chills, sweats. No hemoptysis symptoms hematochezia, no nausea, no vomiting. -: Gradual Radiation: non-radiation Quality: dull Improves with: none Worsens with: none Associated Symptoms: denies: chest pain, cough, diaphoresis, loss of appetite, shortness of breath, syncope - Related Data Previous Rx's Medication Instructions Recorded Last Taken Type Potassium Chloride [K-Dur] 10 meq PO BID #60 06/26/21 Unknown Rx Potassium Chloride [K-Dur] 20 meq PO Q12HR #60 tablet 06/26/21 Unknown Rx Valsartan [Diovan] 320 mg PO QDAY #30 tablet 06/26/21 Unknown Rx carvediloL [Coreg] 25 mg PO BID #60 tablet 06/26/21 Unknown Rx Torsemide [Demadex] 20 mg PO BID 30 Days #60 09/05/21 Unknown Rx Allergies Allergy/AdvReac Type Severity Reaction Status Date / Time lisinopril Allergy Hives Verified 02/16/21 12:07 ED Review of Systems ROS: Stated complaint: DIFFICULTY SWALLOWING/CHEST DISCOMFORT Other details as noted in HPI Comment: All other systems reviewed and negative ED Past Medical Hx - Past Medical History Hx Hypertension: Yes Hx CVA: No Hx Heart Attack/AMI: No Hx Congestive Heart Failure: Yes - Social History Smoking Status: Never Smoker Substance Use Type: None (Denies illicit drug use) - Medications Home Medications: Home Medications Medication Instructions Recorded Confirmed Last Taken Type Potassium Chloride [K-Dur] 10 meq PO BID #60 06/26/21 Unknown Rx Potassium Chloride [K-Dur] 20 meq PO Q12HR #60 tablet 06/26/21 Unknown Rx Valsartan [Diovan] 320 mg PO QDAY #30 tablet 06/26/21 Unknown Rx carvediloL [Coreg] 25 mg PO BID #60 tablet 06/26/21 Unknown Rx Torsemide [Demadex] 20 mg PO BID 30 Days #60 09/05/21 Unknown Rx ED Physical Exam - General Limitations: No Limitations General appearance: alert, in no apparent distress - Head Head exam: Present: atraumatic, normocephalic - Eye Eye exam: Present: normal appearance, PERRL Pupils: Present: normal accommodation - ENT ENT exam: Present: mucous membranes moist - Neck Neck exam: Present: normal inspection - Respiratory Respiratory exam: Present: normal lung sounds bilaterally. Absent: respiratory distress - Cardiovascular Cardiovascular Exam: Present: regular rate, normal rhythm. Absent: systolic murmur, diastolic murmur, rubs, gallop - GI/Abdominal GI/Abdominal exam: Present: soft, normal bowel sounds - Rectal Rectal exam: Present: deferred - Extremities Exam Extremities exam: Present: normal inspection, tenderness, normal capillary refill, pedal edema, joint swelling. Absent: calf tenderness - Back Exam Back exam: Present: normal inspection, full ROM. Absent: CVA tenderness (R), CVA tenderness (L) - Neurological Exam Neurological exam: Present: alert, oriented X3, CN II-XII intact - Psychiatric Psychiatric exam: Present: normal affect, normal mood - Skin Skin exam: Present: warm, dry, intact, normal color. Absent: rash ED Course Vital Signs 09/04/21 19:42 Temperature 98.3 F Pulse Rate 80 Respiratory 18 Rate Blood Pressure 178/126 O2 Sat by Pulse 96 Oximetry ED Medical Decision Making - Lab Data Result diagrams: 09/04/21 20:14 09/04/21 20:14 Critical care attestation.: If time is entered above; I have spent that time in minutes in the direct care of this critically ill patient, excluding procedure time. ED Disposition Clinical Impression: Lower extremity edema Disposition: 01 HOME / SELF CARE / HOMELESS Is pt being admited?: No Does the pt Need Aspirin: No Condition: Stable Instructions: Edema, Peripheral Edema Prescriptions: Torsemide [Demadex] 20 mg PO BID 30 Days #60 Referrals: ALTAF FRASER MD [Primary Care Provider] - 3-5 Days
[2021-09-05 03:25] VITALS: BP 160/119
[2021-09-05 03:25] LABS: Chol/HDL Ratio 5.4 %
--- NOTE | 2021-09-05 08:58 | Electrocardiograph Report ---
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
== END 2021-09-05 03:25 | disposition home or self-care (01) ==
LOC: ED 17:25
DX: R60.0 Localized edema (principal); I11.0 Hypertensive heart disease with heart failure; I50.9 Heart failure, unspecified; Z79.899 Other long term (current) drug therapy; Z91.09 Other allergy status, other than to drugs and biological substances
CPT/HCPCS: 36415; 71046; 80053; 80061; 84484; 85025; 93005; 99284

== ENCOUNTER 2021-09-26 08:11 | Observation (INO) | payer OTHER ==
[2021-09-26] MEDS ORDERED: SODIUM CHLORIDE 0.9% 1000 ML 1,000 ML IV ONE (08:30)
--- NOTE | 2021-09-26 08:56 | Consultation ---
Medications and Allergies Allergies Allergy/AdvReac Type Severity Reaction Status Date / Time lisinopril Allergy Hives Verified 02/16/21 12:07 Home Medications Medication Instructions Recorded Confirmed Last Taken Type Potassium Chloride [K-Dur] 10 meq PO BID #60 06/26/21 Unknown Rx Potassium Chloride [K-Dur] 20 meq PO Q12HR #60 tablet 06/26/21 Unknown Rx Valsartan [Diovan] 320 mg PO QDAY #30 tablet 06/26/21 Unknown Rx carvediloL [Coreg] 25 mg PO BID #60 tablet 06/26/21 Unknown Rx Torsemide [Demadex] 20 mg PO BID 30 Days #60 09/05/21 Unknown Rx Active Meds: Active Medications Sodium Chloride (Nacl 0.9% 1000 Ml) 1,000 mls @ 999 mls/hr IV BOLUS ONE Stop: 09/26/21 09:30 Physical Examination - Vital Signs Vital Signs: Vital Signs Pulse Resp BP Pulse Ox 85 18 210/110 99 09/26/21 08:13 09/26/21 08:13 09/26/21 08:13 09/26/21 08:13 Assessment and Plan [facility] Consult Note # Demographics Consult Type: Acute Stroke Level 1 (0-4.5 hrs) Patient Location: Emergency Room First Name: Henry Last Name: Nilsa Age: 35 Gender: Male Facility: [facility] Time of Initial Page (Eastern Time): 09/26/2021, 07:58 Time of Return Call (Eastern Time): 09/26/2021, 08:02 # HPI History: 35M patient reports he was up most of the night, says he was on his way to sleep, noted trouble breathing and could not feel hand. Went to kitchen, stood up and woke up son, then called and EMS to ED. Patient thinks his last well time is 07:00 today. No prior similar. Noted to be hypertensive en route. Feels he is getting better but not back to normal. Based on review of EMR, recent visit for refill of diuretic. # Scores Time of exam and NIHSS ( Time): 09/26/2021, 08:13 Level of Consciousness 1a: [0] = Alert; keenly responsive LOC Questions 1b: [0] = Answers both questions correctly LOC Commands 1c: [0] = Performs both tasks correctly Best Gaze 2: [0] = Normal Visual 3: [0] = No visual loss Facial Palsy 4: [0] = Normal symmetrical movements Motor Arm Left 5a: [0] = No drift Motor Arm Right 5b: [0] = No drift Motor Leg Left 6a: [1] = Drift Motor Leg Right 6b: [0] = No drift Limb Ataxia 7: [0] = Absent Sensory 8: [1] = Shtm-by-[id number] sensory loss Best Language 9: [0] = No aphasia Dysarthria 10: [1] = [id number]-iz-[id number] dysarthria Extinction and Inattention 11: [0] = No abnormality NIHSS Total: 3 VAN Screening: Negative # PMH-FH-SH Past Medical History: congestive heart failure Diabetes hypertension # Data Glucose: within normal limits [address]: no bleed preliminarily reviewed by me, please refer to radiology read for official reading # Assessment Impression: Ischemic Stroke (Acute) or possibly hypertensive emergency given severe elevation of blood pressure and shortness of breath. With improvement in symptoms, his deficit now is estimated to be non-disabling and IV tPA is not recommended as risk > benefit with available data as best I can estimate. Discussed with Dr. Tirado. I did re- examine the patient following CT/CTA head/neck and RNs assisted with ambulation, he was able to stand unassisted. # Plan Thrombolytic/Intervention: NOT IV Thrombolysis or IA Intervention candidate Thrombolytic Exclusion (< 3 hour window): Individualized disability discussion had with the patient and/or family, and they have determined the current deficits to be non-disabling and do not wish to proceed with thrombolytic Intraarterial Exclusion: no large vessel occlusion (LVO) pending normal radiology review. Target Blood Pressure: SBP < 220 Imaging: (urgency: routine): MRI Brain without contrast Diagnostic Test: echo with bubble study Medication: aspirin 81 mg PLUS clopidogrel (Plavix) 75 mg for 21 days, then monotherapy therafter start statin with goal of LDL < 70 Other: LDL < 70 If patient has any neurological deterioration please call me back immediately permissive hypertension telemetry monitoring I have discussed my recommendations with the referring provider Disposition: admit # Logistics Telemedicine: Interactive 2 way audio and visual telecommunication technology was utilized during this visit
--- NOTE | 2021-09-26 09:05 | Emergency Department Report ---
ED Neuro Deficit HPI - General Chief Complaint: Weakness Stated Complaint: POSSIBLE STROKE Time Seen by Provider: 09/26/21 08:23 Source: EMS Mode of arrival: Stretcher Limitations: No Limitations - History of Present Illness -: Sudden, hour(s) Last Observed Normal: 07:00 Location: speech, right arm Presenting Symptoms: Present: Weak/Paralyzed One Side, Unable to Speak Clearly History of same: No Place: home Severity: moderate Quality: weak Improves With: rest Worsens With: none On Anticoagulants: No Context: sudden onset Associated Symptoms: headaches Treatments Prior to Arrival: none - Related Data Home Medications: Previous Rx's Medication Instructions Recorded Last Taken Type Potassium Chloride [K-Dur] 10 meq PO BID #60 06/26/21 Unknown Rx Potassium Chloride [K-Dur] 20 meq PO Q12HR #60 tablet 06/26/21 Unknown Rx Valsartan [Diovan] 320 mg PO QDAY #30 tablet 06/26/21 Unknown Rx carvediloL [Coreg] 25 mg PO BID #60 tablet 06/26/21 Unknown Rx Torsemide [Demadex] 20 mg PO BID 30 Days #60 09/05/21 Unknown Rx Allergies/Adverse Reactions: Allergies Allergy/AdvReac Type Severity Reaction Status Date / Time lisinopril Allergy Hives Verified 02/16/21 12:07 ED Review of Systems ROS: Stated complaint: POSSIBLE STROKE Other details as noted in HPI Comment: All other systems reviewed and negative Eyes: denies: eye pain, eye discharge, vision change ENT: denies: hearing loss, epistaxis Respiratory: denies: see HPI, cough, orthopnea, SOB at rest Cardiovascular: as per HPI. denies: chest pain, palpitations, dyspnea on exertion Endocrine: denies: no symptoms reported, see HPI, excessive sweating Gastrointestinal: as per HPI. denies: abdominal pain, nausea, vomiting, constipation, hematemesis, melena, hematochezia Genitourinary: denies: urgency, dysuria, frequency, hematuria, discharge, testicular pain, testicular mass Musculoskeletal: denies: back pain, joint swelling, arthralgia Skin: denies: rash, lesions, change in color, change in hair/nails, pruritus Neurological: weakness, numbness. denies: headache, paresthesias, confusion, abnormal gait, vertigo, other Psychiatric: denies: anxiety, depression ED Past Medical Hx - Past Medical History Previous Medical History?: Yes Hx Hypertension: Yes Hx CVA: No Hx Heart Attack/AMI: No Hx Congestive Heart Failure: Yes Hx Diabetes: Yes - Surgical History Past Surgical History?: No - Social History Smoking Status: Never Smoker Substance Use Type: None - Medications Home Medications: Home Medications Medication Instructions Recorded Confirmed Last Taken Type Potassium Chloride [K-Dur] 10 meq PO BID #60 06/26/21 Unknown Rx Potassium Chloride [K-Dur] 20 meq PO Q12HR #60 tablet 06/26/21 Unknown Rx Valsartan [Diovan] 320 mg PO QDAY #30 tablet 06/26/21 Unknown Rx carvediloL [Coreg] 25 mg PO BID #60 tablet 06/26/21 Unknown Rx Torsemide [Demadex] 20 mg PO BID 30 Days #60 09/05/21 Unknown Rx ED Neuro Physical Exam - General Limitations: No Limitations General appearance: alert, in no apparent distress Suspected Stroke: Yes - Head Head exam: Present: atraumatic, normocephalic, normal inspection - Eye Eye exam: Present: normal appearance, PERRL, EOMI - ENT ENT exam: Present: normal exam, normal orophraynx, mucous membranes moist, normal external ear exam - Neck Neck exam: Present: normal inspection, full ROM. Absent: tenderness, meningismus, lymphadenopathy, thyromegaly - Respiratory Respiratory exam: Present: normal lung sounds bilaterally, respiratory distress. Absent: wheezes, rales, rhonchi, chest wall tenderness, accessory muscle use, decreased breath sounds, prolonged expiratory - Cardiovascular Cardiovascular Exam: Present: regular rate, normal rhythm, normal heart sounds - GI/Abdominal GI/Abdominal exam: Present: soft, normal bowel sounds. Absent: distended, tenderness, guarding, rebound, rigid, diminished bowel sounds, hyperactive bowel sounds, hypoactive bowel sounds, organomegaly, mass, bruit, pulsatile mass, hernia - Extremities Exam Extremities exam: Present: normal inspection, full ROM, normal capillary refill. Absent: tenderness, pedal edema, joint swelling, calf tenderness - Back Exam Back exam: Present: normal inspection, full ROM, tenderness. Absent: CVA tenderness (R), CVA tenderness (L), muscle spasm, paraspinal tenderness, vertebral tenderness - Neurological Exam Neurological exam: Present: alert, oriented X3, CN II-XII intact, normal gait. Absent: motor sensory deficit - NIHSS Assessment Interval: Baseline 1a. Level of Consciousness: alert/keenly responsive 1b. LOC Questions: answers both correctly 1c. LOC Commands: performs tasks correctly 2. Best Gaze: normal 3. Visual: no visual loss 4. Facial Palsy: normal symmetrical movement 5b. Motor Arm Right: no drift 5a. Motor Arm Left: no drift 6a. Motor Leg Left: no drift 6b. Motor Leg Right: no drift 7. Limb Ataxia: absent 8. Sensory: normal 9. Best Language: no aphasia 10. Dysarthria: mild/moderate dysarthria 11. Extinction/Inattention: no abnormality Total Score: 1 Stroke Severity: Minor Stroke - Psychiatric Psychiatric exam: Present: normal affect, normal mood. Absent: depressed, agitated, manic, homicidal ideation, suicidal ideation - Skin Skin exam: Present: warm, dry, intact, normal color ED Course Vital Signs 09/26/21 09/26/21 09/26/21 08:13 08:21 09:00 Temperature 98.9 F Pulse Rate 85 90 89 Respiratory 18 20 18 Rate Blood Pressure 210/110 Blood Pressure 210/110 112/70 [Left] O2 Sat by Pulse 99 99 99 Oximetry 09/26/21 09/26/21 09/26/21 09:04 09:15 09:16 Temperature 98.5 F Pulse Rate 94 H 96 H 102 H Respiratory 22 17 34 H Rate Blood Pressure 117/61 Blood Pressure 176/110 [Left] O2 Sat by Pulse 83 L 99 87 Oximetry 09/26/21 09/26/21 09/26/21 09:31 09:45 10:01 Temperature Pulse Rate 96 H 96 H 82 Respiratory 20 21 15 Rate Blood Pressure 117/61 175/135 187/138 Blood Pressure [Left] O2 Sat by Pulse 93 95 94 Oximetry - Reevaluation(s) Reevaluation #1: 09/26/21 09:15 pt in exam room from ct; comfortable and well appearing; NIH score: Reevaluation #2: 09/26/21 09:19: pt is well appearing; NIH score zero; will continue to monitor - Consultations Consultation #1: 09/26/21 09:02am: Call received from stroke teleneurologist, Dr. Gomez. PT is not a tpa candidate at this time. He advises aspirin and admission to the hospitalist service. - Lab Data Result diagrams: 09/26/21 09:10 09/26/21 09:10 Lab Results 09/26/21 09/26/21 09/26/21 Range/Units 08:53 09:10 09:10 WBC 6.2 (4.5-11.0) K/mm3 RBC 5.58 H (3.65-5.03) M/mm3 Hgb 12.7 (11.8-15.2) gm/dl Hct 40.1 (35.5-45.6) % MCV 72 L (84-94) fl MCH 23 L (28-32) pg MCHC 32 (32-34) % RDW 21.2 H (13.2-15.2) % Plt Count 346 (140-440) K/mm3 Lymph % (Auto) 24.9 (13.4-35.0) % [place] % (Auto) 6.7 (0.0-7.3) % Eos % (Auto) 2.8 (0.0-4.3) % Baso % (Auto) 1.1 (0.0-1.8) % Lymph # (Auto) 1.5 (1.2-5.4) K/mm3 [place] # (Auto) 0.4 (0.0-0.8) K/mm3 Eos # (Auto) 0.2 (0.0-0.4) K/mm3 Baso # (Auto) 0.1 (0.0-0.1) K/mm3 Seg Neutrophils % 64.5 (40.0-70.0) % Seg Neutrophils # 4.0 (1.8-7.7) K/mm3 PT 14.4 (12.2-14.9) Sec. INR 1.01 (0.87-1.13) APTT 29.7 (24.2-36.6) Sec. Sodium (137-145) mmol/L Potassium (3.6-5.0) mmol/L Chloride (98-107) mmol/L Carbon Dioxide (22-30) mmol/L Anion Gap mmol/L BUN (9-20) mg/dL Creatinine (0.8-1.3) mg/dL Estimated GFR ml/min BUN/Creatinine Ratio % Glucose (75-100) mg/dL POC Glucose 121 H (70-105) mg/dL Calcium (8.4-10.2) mg/dL Total Bilirubin (0.1-1.2) mg/dL AST (5-40) units/L ALT (7-56) units/L Alkaline Phosphatase (35-129) units/L Troponin T (0.00-0.029) ng/mL Total Protein (6.3-8.2) g/dL Albumin (3.9-5) g/dL Albumin/Globulin Ratio % Urine Opiates Screen Urine Methadone Screen Ur Barbiturates Screen Ur Phencyclidine Scrn Ur Amphetamines Screen U Benzodiazepines Scrn Urine Cocaine Screen U Marijuana (THC) Screen Drugs of Abuse Note 09/26/21 09/26/21 Range/Units 09:10 09:49 WBC (4.5-11.0) K/mm3 RBC (3.65-5.03) M/mm3 Hgb (11.8-15.2) gm/dl Hct (35.5-45.6) % MCV (84-94) fl MCH (28-32) pg MCHC (32-34) % RDW (13.2-15.2) % Plt Count (140-440) K/mm3 Lymph % (Auto) (13.4-35.0) % [place] % (Auto) (0.0-7.3) % Eos % (Auto) (0.0-4.3) % Baso % (Auto) (0.0-1.8) % Lymph # (Auto) (1.2-5.4) K/mm3 [place] # (Auto) (0.0-0.8) K/mm3 Eos # (Auto) (0.0-0.4) K/mm3 Baso # (Auto) (0.0-0.1) K/mm3 Seg Neutrophils % (40.0-70.0) % Seg Neutrophils # (1.8-7.7) K/mm3 PT (12.2-14.9) Sec. INR (0.87-1.13) APTT (24.2-36.6) Sec. Sodium 141 (137-145) mmol/L Potassium 3.5 L (3.6-5.0) mmol/L Chloride 102.1 (98-107) mmol/L Carbon Dioxide 26 (22-30) mmol/L Anion Gap 16 mmol/L BUN 13 (9-20) mg/dL Creatinine 1.3 (0.8-1.3) mg/dL Estimated GFR > 60 ml/min BUN/Creatinine Ratio 10 % Glucose 115 H (75-100) mg/dL POC Glucose (70-105) mg/dL Calcium 9.3 (8.4-10.2) mg/dL Total Bilirubin 0.70 (0.1-1.2) mg/dL AST 19 (5-40) units/L ALT 13 (7-56) units/L Alkaline Phosphatase 83 (35-129) units/L Troponin T 0.014 (0.00-0.029) ng/mL Total Protein 7.7 (6.3-8.2) g/dL Albumin 4.3 (3.9-5) g/dL Albumin/Globulin Ratio 1.3 % Urine Opiates Screen Negative Urine Methadone Screen Negative Ur Barbiturates Screen Negative Ur Phencyclidine Scrn Negative Ur Amphetamines Screen Negative U Benzodiazepines Scrn Negative Urine Cocaine Screen Negative U Marijuana (THC) Screen Negative Drugs of Abuse Note Disclamer - EKG Data -: EKG Interpreted by [place] EKG shows normal: sinus rhythm Rate: normal (prolonged [place] interval) When compared to previous EKG there are: previous EKG unavailable - Radiology Data Radiology results: report reviewed - Medical Decision Making 35-year-old obese male with multiple medical comorbidities presents for evaluation of dysarthria, right hand weakness, left leg weakness, all of which have resolved upon arrival to the ER. NIH score 0. It was reassessed multiple times and remains persistently 0. Stroke alert called. Patient per stroke neurologist, Dr. Gomez, is not a tpa candidate. Labs reviewed. PT has been accepted for admission to the hospitalist by Dr. Guerrero for further management. Critical care attestation.: If time is entered above; I have spent that time in minutes in the direct care of this critically ill patient, excluding procedure time. ED Disposition Clinical Impression: TIA (transient ischemic attack) Disposition: ADMITTED INPATIENT Is pt being admited?: Yes Does the pt Need Aspirin: Yes Condition: Stable
[2021-09-26] MEDS ORDERED: ASPIRIN 81 MG TAB CHEW PO ONE (09:16)
[2021-09-26 09:17] LABS: Basophils # (Auto) 0.1 K/mm3 (0.0-0.1); Basophils % (Auto) 1.1 % (0.0-1.8); Eosinophils # (Auto) 0.2 K/mm3 (0.0-0.4); Eosinophils % (Auto) 2.8 % (0.0-4.3); Hematocrit 40.1 % (35.5-45.6); Hemoglobin 12.7 gm/dl (11.8-15.2); Lymphocytes # (Auto) 1.5 K/mm3 (1.2-5.4); Lymphocytes % (Auto) 24.9 % (13.4-35.0); Mean Corpuscular HGB Conc 32 % (32-34); Mean Corpuscular Volume 72 fl (84-94); Monocytes # (Auto) 0.4 K/mm3 (0.0-0.8); Monocytes % (Auto) 6.7 % (0.0-7.3); Platelet Count 346 K/mm3 (140-440); Red Blood Count 5.58 M/mm3 (3.65-5.03)
[2021-09-26 09:26] LABS: INR 1.01 (0.87-1.13)
[2021-09-26 09:27] LABS: Partial Thromboplastin Time 29.7 Sec. (24.2-36.6)
[2021-09-26 09:30] LABS: Red Cell Distribution Width 21.2 % (13.2-15.2)
[2021-09-26 09:45] LABS: Alanine Aminotransferase 13 units/L (7-56); Albumin 4.3 g/dL (3.9-5); BUN/Creatinine Ratio 10; Blood Urea Nitrogen 13 mg/dL (9-20); Calcium 9.3 mg/dL (8.4-10.2); Hemolysis Index 20
--- NOTE | 2021-09-26 09:54 | Cat Scan Report ---
CT head/brain wo con INDICATION: r/o cva. TECHNIQUE: Routine CT head. All CT scans at this location are performed using CT dose reduction for A MERARI by means of automated exposure control. COMPARISON: None. FINDINGS: Intracranial: Hammond-white matter differentiation is maintained. No intracranial hemorrhage. No extra a xial collection. No hydrocephalus. No herniation. Sinuses: Paranasal sinuses and mastoid air cells are essentially clear. Orbits: Globes are intact. Calvarium: No acute fracture. IMPRESSION: 1. No acute intracranial abnormality. Signer Name: Kiko Soto MD Signed: 09/26/2021 9:50 AM Workstation Name: [id number]
--- NOTE | 2021-09-26 09:55 | Cat Scan Report ---
CT angio neck HISTORY: r/o cva COMPARISON: None. TECHNIQUE: Routine CTA of the neck is performed. 3-D/MIP reformats were postprocessed. Percentage st enosis is determined by direct quantitative measurements of diseased internal carotid artery diameter compared with normal distal internal carotid artery reference segments or by criteria similar to EFREN CET where applicable. All CT scans at this location are performed using CT dose reduction for ALARA b y means of automated exposure control. FINDINGS: Aortic arch: No significant abnormality. Cervical vertebral arteries: No occlusion or hemodynamically significant stenosis. Common Carotid arteries: No occlusion or hemodynamically significant stenosis. Internal carotid arteries: No occlusion or hemodynamically significant stenosis. Additional findings: None. IMPRESSION: 1. No occlusion or significant stenosis. Signer Name: Kiko Soto MD Signed: 09/26/2021 9:51 AM Workstation Name: [id number]
--- NOTE | 2021-09-26 09:57 | Cat Scan Report ---
CT angio head HISTORY: r/o cva COMPARISON: None. TECHNIQUE: CTA of the head is performed after IV contrast. 3-D/MIP reformats were postprocessed. Per centage stenosis is determined by direct quantitative measurements of diseased internal carotid arter y diameter compared with normal distal internal carotid artery reference segments or by criteria jorge lar to NASCET where applicable. All CT scans at this location are performed using CT dose reduction f or ALARA by means of automated exposure control. FINDINGS: CTA HEAD: Intracranial internal carotid arteries: No occlusion or significant stenosis. Anterior cerebral arteries: No occlusion or significant stenosis. Middle cerebral arteries: No occlusion or significant stenosis. Intracranial vertebral arteries: No occlusion or significant stenosis. Basilar artery: No occlusion or significant stenosis. Posterior cerebral arteries: No occlusion or significant stenosis. No aneurysm. Additional findings: None. IMPRESSION: 1. CTA HEAD: No occlusion or significant stenosis of the major intracranial vasculature. Signer Name: Kiko Soto MD Signed: 09/26/2021 9:52 AM Workstation Name: [id number]
[2021-09-26 10:17] LABS: Amphetamine Screen,Urine Negative; Benzodiazepines Screen,Urine Negative; Cannabinoid Screen,Urine Negative; Cocaine Screen,Urine Negative; Methadone Screen,Urine Negative; Opiate Screen,Urine Negative
--- NOTE | 2021-09-26 10:24 | History and Physical Report ---
History of Present Illness Date of examination: 09/26/21 Date of admission: 09/26/21 Chief complaint: Weak/Paralyzed One Side, Unable to Speak Clearly History of present illness: 35M patient reports he was up most of the night, says he was on his way to sleep, noted trouble breathing and could not feel hand. Went to kitchen, stood up and woke up son, then called and EMS to ED. Patient thinks his last well time is 07:00 today. No prior similar. Noted to be hypertensive en route. Feels he is getting better but not back to normal. Based on review of EMR, recent visit for refill of diuretic. Medications and Allergies Allergies Allergy/AdvReac Type Severity Reaction Status Date / Time lisinopril Allergy Hives Verified 02/16/21 12:07 Home Medications Medication Instructions Recorded Confirmed Last Taken Type Potassium Chloride [K-Dur] 10 meq PO BID #60 06/26/21 Unknown Rx Potassium Chloride [K-Dur] 20 meq PO Q12HR #60 tablet 06/26/21 Unknown Rx Valsartan [Diovan] 320 mg PO QDAY #30 tablet 06/26/21 Unknown Rx carvediloL [Coreg] 25 mg PO BID #60 tablet 06/26/21 Unknown Rx Torsemide [Demadex] 20 mg PO BID 30 Days #60 09/05/21 Unknown Rx Exam - Constitutional Vitals: Temp Pulse Resp BP Pulse Ox 98.5 F 82 15 187/138 94 09/26/21 09:15 09/26/21 10:01 09/26/21 10:01 09/26/21 10:01 09/26/21 10:01 HEART Score - HEART Score Troponin: Troponin T 0.014 ng/mL (0.00-0.029) 09/26/21 09:10 Results - Labs CBC & Chem 7: 09/26/21 09:10 09/26/21 09:10 Labs: Abnormal lab results 09/26/21 09/26/21 09/26/21 Range/Units 08:53 09:10 09:10 RBC 5.58 H (3.65-5.03) M/mm3 MCV 72 L (84-94) fl MCH 23 L (28-32) pg RDW 21.2 H (13.2-15.2) % Potassium 3.5 L (3.6-5.0) mmol/L Glucose 115 H (75-100) mg/dL POC Glucose 121 H (70-105) mg/dL Assessment and Plan Possible TIA - We will admit the patient to remote telemetry - We'll place on aspirin and statin, will consult neurology - CT scan of the head obtained in the ER and shows - We will get MRI of the head, carotid Doppler, 2-D echocardiogram - We will also get hemoglobin A1c level and fasting lipid panel - Allow permissive hypertension, will hold BP meds if patient is taking any at home - Consult PTOT and speech therapist - Keep the patient nothing by mouth for now, monitor blood glucose - Further management will be based on pending lab results and imaging studies Hypertensive urgency - Hold BP meds until TIA work-up is complete -We will use hydralazine IV as needed for SBP greater than 200 - We'll place on GI prophylaxis to avoid stress ulcer - Place on DVT prophylaxis
[2021-09-26] MEDS ORDERED: MAGNESIUM HYDROXIDE (MOM) ORAL LIQD UDC PO PRN (12:04)
[2021-09-26] MEDS ORDERED: METOCLOPRAMIDE 10 MG TAB PO PRN (12:04)
[2021-09-26] MEDS ORDERED: MORPHINE 4 MG/1 ML INJ IV PRN (12:04)
[2021-09-26] MEDS ORDERED: ACETAMINOPHEN 325 MG TAB PO PRN (12:04)
[2021-09-26] MEDS ORDERED: ONDANSETRON 4 MG/2 ML INJ IV PRN (12:04)
[2021-09-26] MEDS ORDERED: PROMETHAZINE 25 MG RECT SUPP PR PRN (12:04)
[2021-09-26] MEDS ORDERED: HYDROcodone/ACETAMINOPHEN 5-325 MG TAB PO PRN (12:04)
[2021-09-26] MEDS ORDERED: POTASSIUM CHLORIDE ER 20 MEQ TAB PO SCH (13:44)
[2021-09-26 15:04] VITALS: BP 205/153
[2021-09-26] MEDS ORDERED: FAMOTIDINE 20 MG TAB PO SCH (22:00)
[2021-09-27] MEDS ORDERED: ASPIRIN 325 MG TAB PO SCH (10:00)
--- NOTE | 2021-09-27 10:03 | Electrocardiograph Report ---
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
== END 2021-09-26 16:44 | disposition left against medical advice (07) ==
LOC: ED 08:11 → 4A 12:04
PROVIDERS: ADMIT Internal Medicine; ATTEND Internal Medicine
DX: G45.9 Transient cerebral ischemic attack, unspecified (principal); I16.0 Hypertensive urgency; I11.0 Hypertensive heart disease with heart failure; I50.9 Heart failure, unspecified; E11.9 Type 2 diabetes mellitus without complications; R29.703 NIHSS score 3; Z79.82 Long term (current) use of aspirin; Z79.899 Other long term (current) drug therapy; Z98.890 Other specified postprocedural states
CPT/HCPCS: 36415; 70450; 70496; 70498; 80053; 80307; 82962; 84484; 85025; 85610; 85730; 93005; 96360; 99285; G0378; Q9967; J2405